=== PATIENT | female | born 1940 | race Caucasian/White ===

== ENCOUNTER 2017-01-19 15:57 | Emergency (ER) | payer MEDICARE, OTHER ==
--- NOTE | 2017-01-19 16:31 | ER Document Report ---
ED Syncope and Near Syncope - General Chief Complaint: Fainting Stated Complaint: SYNCOPE, VOMITING Time Seen by Provider: 01/19/17 16:31 Mode of Arrival: Ambulatory Notes: Patient was at orthopedics office getting a cortisone injection in her left wrist when she felt hot and felt like she was going to pass out. Patient had a brief syncopal episode. EMS was called. Patient was feeling fine prior to getting the injection. Does state that she has been under a lot of stress. Found out last night that her grandsons unit which is [employer] sustained casualties in [place] leading to 3 soldiers deaths. This has bothered her today. Denies any chest pain, shortness of breath. Does have some mild nausea but getting better. Did have vomiting after the episode. Patient was in physician's office at that time. TRAVEL OUTSIDE OF THE [place] IN LAST 30 DAYS: No - HPI Patient complains to provider of: Fainting Symptoms prior to episode: Other - Patient felt hot. - Related Data Allergies/Adverse Reactions: acetaminophen [From Vicodin] Allergy (Verified 01/19/17 16:16) hydrocodone bitartrate [From Vicodin] Allergy (Verified 01/19/17 16:16) penicillin V [Penicillin V] Allergy (Verified 01/19/17 16:16) Sulfa (Sulfonamide Antibiotics) Allergy (Verified 01/19/17 16:16) Home Medications: Current Home Medications Carbidopa/Levodopa [Sinemet 25-100 mg Tablet] 2 tab PO TID 01/19/17 [History] Colchicine [Colcrys] 1 tab PO DAILY 01/19/17 [History] Furosemide 20 mg PO DAILY 01/19/17 [History] Lisinopril [Lisinopril] 1 tab PO DAILY 01/19/17 [History] Rasagiline Mesylate [Rasagiline Mesylate] 1 tab PO DAILY 01/19/17 [History] Past Medical History - Social History Smoking Status: Never Smoker Cigarette use (# per day): No Family History: Malignancy, CAD - Past Medical History Cardiac Medical History: Reports: Hx Hypertension Endocrine Medical History: Reports: Hx Diabetes Mellitus Type 2, Hx Hypothyroidism Past Surgical History: Reports: Hx Cholecystectomy, Hx Orthopedic Surgery - trigger finger right hand, Hx Tubal Ligation - Immunizations Immunizations up to date: Yes Hx Diphtheria, Pertussis, Tetanus Vaccination: Yes Review of Systems - Review of Systems Constitutional: No symptoms reported EENT: No symptoms reported Cardiovascular: No symptoms reported, Syncope Respiratory: No symptoms reported Gastrointestinal: No symptoms reported, Nausea, Vomiting Genitourinary: No symptoms reported Female Genitourinary: No symptoms reported Musculoskeletal: No symptoms reported Skin: No symptoms reported Hematologic/Lymphatic: No symptoms reported Neurological/Psychological: No symptoms reported, Tremor Physical Exam - Vital signs Vitals: Pulse Ox 97 01/19/17 16:06 Interpretation: Normal - General General appearance: Appears well, Alert - HEENT Head: Normocephalic, Atraumatic Eyes: Normal Pupils: PERRL - Respiratory Respiratory status: No respiratory distress Chest status: Nontender Breath sounds: Normal Chest palpation: Normal - Cardiovascular Rhythm: Regular Heart sounds: Normal auscultation Murmur: No - Abdominal Inspection: Normal Distension: No distension Bowel sounds: Normal Tenderness: Nontender Organomegaly: No organomegaly - Back Back: Normal, Nontender - Extremities General upper extremity: Normal inspection, Nontender, Normal color, Normal ROM , Normal temperature General lower extremity: Normal inspection, Nontender, Normal color, Normal ROM , Normal temperature, Normal weight bearing. No: Thom's sign - Neurological Neuro grossly intact: Yes Cognition: Normal Orientation: AAOx4 Alyssa Coma Scale Eye Opening: Spontaneous Alysas Coma Scale Verbal: Oriented Alyssa Coma Scale Motor: Obeys Commands Alyssa Coma Scale Total: 15 Speech: Normal Motor strength normal: LUE, RUE, LLE, RLE Sensory: Normal Notes: Tremor noted to the upper extremities - Psychological Associated symptoms: Normal affect, Normal mood - Skin Skin Temperature: Warm Skin Moisture: Dry Skin Color: Normal Course - Re-evaluation Re-evalutation: 01/19/17 18:51 This is a well-appearing individual in no acute distress with fairly unremarkable labs, EKG and urinalysis. Did not fall and hit her head. Had a vasovagal syncopal episode more than likely as this correlated at the same time of a needle injection. Patient is at her baseline mental status with no acute issues at this time. Comfortable discharging with close follow-up. - Vital Signs Vital signs: Temp Pulse Resp BP Pulse Ox 18 108/48 L 98 01/19/17 17:03 01/19/17 17:03 01/19/17 17:03 - Laboratory Result Diagrams: 01/19/17 17:13 01/19/17 17:13 Laboratory results interpreted by me: 01/19/17 01/19/17 01/19/17 17:13 17:13 18:15 RDW 14.3 H Seg Neutrophils % 86.0 H Lymphocytes % 10.0 L Monocytes % 2.6 L Absolute Neutrophils 8.9 H Sodium 134.3 L Carbon Dioxide 20 L Glucose 168 H AST 12 L Urine Protein 100 H Urine Ketones TRACE H Ur Leukocyte Esterase SMALL H Urinalysis results reviewed. Will add culture. - Diagnostic Test Radiology reviewed: Reports reviewed - Chest x-ray unremarkable Discharge - Discharge Clinical Impression: Vasovagal syncope Condition: Good Disposition: HOME, SELF-CARE Additional Instructions: Vasovagal Symptoms Your symptoms seem to be due to a fall in blood pressure, caused by the interaction of your nervous system with your circulatory system. This can result in abnormally slow pulse rate, faintness, abnormal sensations, low blood pressure, difficulty with vision, or fainting (syncope). Vasovagal symptoms may be brought on by emotional distress, pain, dehydration, bleeding, or medication effects. Often, no cause can be identified. Your exam has revealed no signs of a serious problem. Usually, no further tests are required. However, if further workup has been recommended it's important that you follow up as instructed. Should you feel lightheaded or "about to faint," you should sit or lie down as quickly as possible. The episode will usually pass. Recurring symptoms will require further evaluation to determine the cause. Call the physician if you develop severe prolonged dizziness, headache, chest pain, shortness of breath, or other new symptoms. If you develop any worsening signs or symptoms or you have any concerns will be very important that you follow-up or return to the emergency department immediately. A urine culture is pending at this time.
--- NOTE | 2017-01-19 17:03 | RADIOLOGY REPORT (SQ) ---
EXAM DESCRIPTION: CHEST SINGLE VIEW COMPLETED DATE/TIME: 01/19/2017 4:51 pm REASON FOR STUDY: sob COMPARISON: None. EXAM PARAMETERS: NUMBER OF VIEWS: One view. TECHNIQUE: Single frontal radiographic view of the chest acquired. RADIATION DOSE: NA LIMITATIONS: None. FINDINGS: LUNGS AND PLEURA: No opacities, masses or pneumothorax. No pleural effusion. MEDIASTINUM AND HILAR STRUCTURES: No masses. Contour normal. HEART AND VASCULAR STRUCTURES: Heart normal in size. Normal vasculature. BONES: No acute findings. HARDWARE: None in the chest. OTHER: No other significant finding. IMPRESSION: NO ACUTE RADIOGRAPHIC FINDING IN THE CHEST. TECHNICAL DOCUMENTATION: JOB ID: [id number]
[2017-01-19 17:24] LABS: ABSOLUTE BASOPHILS # (AUTO) 0.1 10^3/uL (0.0-0.2); ABSOLUTE EOSINOPHILS # (AUTO) 0.1 10^3/uL (0.0-0.6); ABSOLUTE MONOCYTES (AUTO) 0.3 10^3/uL (0.1-1.4); ABSOLUTE NEUT (AUTO) 8.9 10^3/uL (1.7-8.2); BASOPHILS % (AUTO) 0.7 % (0-2); EOSINOPHILS % (AUTO) 0.7 % (0-6); HEMATOCRIT 39.1 % (36.0-47.0); HGB HCT DIFFERENCE -0.1; MEAN CORPUSCULAR HEMOGLOBIN 29.9 pg (27.0-33.4); MEAN CORPUSCULAR HGB CONC 33.3 g/dL (32.0-36.0); MEAN CORPUSCULAR VOLUME 90 fl (80-97); MONOCYTES % (AUTO) 2.6 % (3-13); RED BLOOD COUNT 4.37 10^6/uL (3.72-5.28); RED CELL DISTRIBUTION WIDTH 14.3 % (11.5-14.0); WHITE BLOOD COUNT 10.4 10^3/uL (4.0-10.5)
[2017-01-19 17:53] LABS: ALANINE AMINOTRANSFERASE 18 U/L (9-52); ALBUMIN 3.9 g/dL (3.5-5.0); ALKALINE PHOSPHATASE 105 U/L (38-126); ANION GAP 12 (5-19); ASPARTATE AMINO TRANSFERASE 12 U/L (14-36); BILIRUBIN,DIRECT 0.4 mg/dL (0.0-0.4); BILIRUBIN,TOTAL 0.5 mg/dL (0.2-1.3); BLOOD UREA NITROGEN 14 mg/dL (7-20); CALCIUM 9.9 mg/dL (8.4-10.2); CARBON DIOXIDE 20 mmol/L (22-30); CHLORIDE 102 mmol/L (98-107); CREATINE KINASE 47 U/L (30-135); CREATININE RESULT 0.82 mg/dL (0.52-1.25); GLUCOSE 168 mg/dL (75-110); POTASSIUM 3.6 mmol/L (3.6-5.0); SODIUM 134.3 mmol/L (137-145); TOTAL PROTEIN 6.7 g/dL (6.3-8.2)
[2017-01-19 18:05] LABS: CREATINE KINASE MB 0.69 ng/mL (<4.55)
[2017-01-19 18:08] LABS: TROPONIN I < 0.012 ng/mL
[2017-01-19 18:46] LABS: APPEARANCE,URINE SLIGHTLY-CLOUDY; BILIRUBIN,URINE NEGATIVE (NEGATIVE); GLUCOSE, URINE NEGATIVE (NEGATIVE); KETONES,URINE TRACE mg/dL (NEGATIVE); LEUKOCYTE ESTERASE,URINE SMALL (NEGATIVE); NITRITE,URINE NEGATIVE (NEGATIVE); PROTEIN,URINE 100 mg/dL (NEGATIVE); URINE SPECIFIC GRAVITY 1.025; UROBILINOGEN,URINE NEGATIVE mg/dL (<2.0)
[2017-01-19 19:07] VITALS: BP 122/75
--- NOTE | 2017-01-20 11:18 | EKG REPORT ---
SEVERITY:- ABNORMAL ECG - ATRIAL FIBRILLATION PROBABLE LVH WITH SECONDARY REPOL ABNRM : Confirmed by: Shraddha Ontiveros MD 20-Jan-2017 11:17:17
== END 2017-01-19 19:03 | disposition home or self-care (01) ==
LOC: ER 15:57
DX: R55 Syncope and collapse (principal); R11.0 Nausea; I10 Essential (primary) hypertension; E03.9 Hypothyroidism, unspecified; E11.9 Type 2 diabetes mellitus without complications; Z88.6 Allergy status to analgesic agent; Z88.2 Allergy status to sulfonamides; Z88.0 Allergy status to penicillin; Z90.49 Acquired absence of other specified parts of digestive tract; Z98.51 Tubal ligation status
CPT/HCPCS: 36415; 71010; 80053; 81001; 82550; 82553; 84484; 85025; 93005; 93010; 99284